=== PATIENT | female | born 1945 | race Caucasian/White ===

== ENCOUNTER → 2018-10-13 | Outpatient (CLI) | payer MEDICARE, OTHER | LOC: COL.RAD 10:45 | DX: M19.012 Primary osteoarthritis, left shoulder (principal) | CPT/HCPCS: J3301; Q9967 ==

== ENCOUNTER → 2021-08-26 | Outpatient (CLI) | payer MEDICARE | LOC: MC.RAD 06:56 | DX: R92.1 Mammographic calcification found on diagnostic imaging of breast (principal) ==